=== PATIENT | female | born 2000 | race African-American/Black ===

== ENCOUNTER 2020-08-10 22:31 | Emergency (ER) | payer OTHER ==
[2020-08-10 22:46] VITALS: BP 103/68; PULSE 98; TEMP 98.1; BMI 22.1
[2020-08-11] MEDS ORDERED: ACETAMINOPHEN 325 MG TABLET (FP) PO ONE (00:31)
[2020-08-11] MEDS ORDERED: IBUPROFEN 400 MG TABLET (FP) PO ONE ×2 (00:31→01:16)
[2020-08-11] MEDS ORDERED: ACETAMINOPHEN 325 MG TABLET (FP) ONE (01:16)
== END 2020-08-11 03:53 | disposition home or self-care (01) ==
LOC: JER 22:31
DX: M94.0 Chondrocostal junction syndrome [Tietze] (principal)
CPT/HCPCS: 71046-TC-FY; 99283-25